=== PATIENT | male | born 1965 | race Caucasian/White ===

== ENCOUNTER 2016-11-23 08:47 | Emergency (ER) | payer OTHER ==
--- NOTE | 2016-11-23 09:07 | EDPHY ---
H & P Time Seen by Provider: 11/23/16 08:57 HPI/ROS: CHIEF COMPLAINT: Sebaceous cyst posterior neck HISTORY OF PRESENT ILLNESS: 51-year-old male presents to the emergency department with an area of swelling to the right posterior aspect of his neck. Thought that he noticed this about 3 or 4 days. It has become more tender and now bit more swollen. Tried squeezing the area however he had noted drainage expressed. Denies any reported trauma. ROS: Denies neck pain with movement, fevers or chills, trauma. Past Medical/Surgical History: Negative Social History: Lives in [place] Smoking Status: Never smoked Physical Exam: On examination the patient has swelling noted to the right posterior aspect of the neck near the base of the skull. There is surrounding swelling and induration with a central excoriated lesion. No fluctuance. No purulent drainage expressed. It is mildly tender to palpate. Neck is supple without lymphadenopathy. No palpable bony tenderness in the cervical spine. Constitutional: Initial Vital Signs Temperature (C) 37 C 11/23/16 08:52 Heart Rate 78 11/23/16 08:52 Respiratory Rate 17 11/23/16 08:52 Blood Pressure 137/81 H 11/23/16 08:52 O2 Sat (%) 96 11/23/16 08:52 O2 Delivery Mode Room Air Allergies/Adverse Reactions: No Known Allergies Allergy (Unverified 11/23/16 08:51) Home Medications: Medication Instructions Recorded Cephalexin [Keflex] 500 mg PO QID #28 cap 11/23/16 Hyzaar 100-12.5 Tablet 11/23/16 MDM/Departure - [facility] ED Course/Re-evaluation: 51-year-old male with what appears to be a sebaceous cyst to the nape of the neck. There is no fluctuance. I do not think incision and drainage is indicated today. The patient has been applying cool compresses and ice to the wound to try to reduce swelling. Patient was encouraged to use warm compresses and to not pick or squeeze the area. He will also be started on antibiotics. He was instructed to return by or Tuesday if the wound is soft and fluctuant as I do not think incising and draining the area was express any purulent material today. He understands to not use cool compresses. He will be started on Keflex. He he was instructed to return if he developed fever, increasing pain, pain with range of motion of his neck, or if he felt worse in any way. - Depart Disposition: Home, Routine, Self-Care Clinical Impression: Sebaceous cyst neck Condition: Good Instructions: Cyst (ED) Additional Instructions: WARM compresses 15-20 min every 3-4 hours especially over the next 2-3 days. Keflex as directed for one week. Do not pick or squeeze as this can cause further swelling and possibly cause infection to spread. Follow-up with primary care provider or return to the emergency department on Tuesday if the wound has not resolved or if it has soften up where can be excised and drained. Prescriptions: Cephalexin [Keflex] 500 mg PO QID #28 cap Referrals: HEATHER CABELLO [Other] - As per Instructions
[2016-11-23 09:28] VITALS: BP 136/92; PULSE 75; RESP 16; TEMP 97.2; O2SAT 95
== END 2016-11-23 09:26 | disposition home or self-care (01) ==
DX: L72.3 Sebaceous cyst (principal)